=== PATIENT | female | born 1955 | race Caucasian/White ===

== ENCOUNTER 2025-07-06 08:38 | Outpatient (AMB) | payer MEDICARE, SELFPAY ==
--- NOTE | 2025-07-06 08:51 | A.OFFPC_ITS ---
Vital Signs 07/06/25 09:11 Height 5 ft 2 in Weight 172 lb BMI 31.5 BP 112/56 L Blood Pressure Location Rt brachial Position Sitting Respiration 16 Pulse 66 Pulse Source Pulse Oximeter Temp 97.8 F Temp Source Oral Pulse Oximetry (%) 97 Oxygen Delivery Method Room Air Intake Visit Reasons: leg pain Intake Note: patient here for new patient visit c/o leg pain Emergency Room Clerk Required: No Is last menstrual period known: No Post menopausal: No Patient : No Allergies No Known Allergies Allergy (Verified 07/06/25 09:02) Medication List - Last Reviewed 07/06/25 by ARLENE Dhillon bupropion HCl XL 150 mg PO DAILY Ca-D3-mag za-dpyr-mgu-brandon-bor 600 mg calcium- 20 mcg-50 mg (Calcium 600-D3 Plus (mag-zinc)) tabs PO cholecalciferol (vitamin D3) 50 mcg PO DAILY escitalopram oxalate 10 mg PO DAILY multivitamin (Daily Multi-Vitamin tablet) 1 tab PO DAILY omega 9-enu-vyn-fish oil 1,000 (120-180) mg (Fish Oil) 1 cap PO DAILY triamcinolone acetonide 0.025% topical DAILY Tobacco use date assessed: 07/06/25 Fall risk assessment: 1 Fall in past year Last assessed Fall Risk: 07/06/25 Dental Screening Dental Screen Date: 07/06/25 Did you have a dental visit in the last 12 months?: Yes Did you have a dental problem in the last 6 months where you did not have access to dental care?: No Was dental information given to patient?: Patient has dentist HPI HPI Comments History of Present Illness Details 70 y/o F with HLD, MDD, MIGUEL A, Osteoporosi s, rosacea, Vit D def, migraine headaches, FHx early CAD, breast ca, chronic low back pain, urinary incont , hx of perforated septum SurgHx: Cataracts bilat 2022, FHx: Mom leukemia, Dad CAD CHF, Sister DM lupus CAD, Brother HTN, MGM breast Ca, PGM stroke DM, Sister Afib, DM SocHx: 3 children, Grandchildren Health Maintenance: See scanned preventative medicine assessment with personalized health plan and screening schedule. Colon: 2014 tubular adenoma repeat 5 years Mammo 02/2024 WNL 04/2025 * DEXA 2022 osteopenia, stopped fosomax 2024 after taking x 5 years. New DEXA ordered. PAP 2017 Vaccines: Flu 07/05/25, Tdap 2019 otherwise UTD AAA screen EKG: [place] of Care: [facility] GI Dr Emmanuel, referred today for repeat which is due Psych prescriber no counselor Optho glasses Derm History of Present Illness The patient is a 70-year-old female presenting to [facility] with concerns related to multiple medical issues. NEw patient, previous PCP [facility] records reviewed Anxiety and Depression: - History of anxiety and depression. - Controlled with bupropion and escitalo pram. Hyperlipidemia: - Managed with fish oil. Osteoporosis and Vitamin D deficiency: - Previous Fosamax use with improved bon e density. - Vitamin D and calcium supplementation due to deficiency. Osteoporosis was tx w/ fosamax. Was due for repeat DEXA 06/2025 I have ordered repeat today as it is due Obesity: - BMI is 31.5. Right knee meniscus tear with arthritis: - Right knee meniscus tear with arthriti s. - Reports ongoing discomfort affecting m obility. Right knee 1.5 years ago, gave out, tore meniscus, told of OA and nonsurgical. Now has L knee pain @ times. Chronic Low back pain s/p PT Chronic R hip pain assoc w/ right leg swelling has not been to PT in a while Trying to exercise at home Does not want joint replacements Takes NSAID sparingly does not like to take meds Tried topicals w/o relief Plan: [place] [facility] [place] [facility] Tubular adenoma: Due for repeat colon, Dr Emmanuel; Advised to call & schedule. Review of Systems - General: Reports obesity. - Musculoskeletal: Reports right knee di scomfort and history of meniscus tear; discomfort in the right hip. - Psychological: Reports history of anxi ety and depression, currently stable. 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 Physical Exam General: Well developed, well nourished, in no acute distress. Appears stated age. Head: Normocephalic, atraumatic. Eyes: Pupils are equal, round and reactive to light and accommodation. Co njunctivae are clear. Vision grossly normal. Lungs: Clear to auscultation bilaterally. No rales, rhonchi or wheeze noted. Good air flow in all benson. Heart: Regular rate and rhythm. No murmurs, click, rubs or gallops are noted. Musculoskeletal: Joints are nontender, without redness or effusions. Pulses: Peripheral pulses are equal and palpable bilaterally. Extremities: No clubbing, cyanosis noted. Trace edema BLE Psych: Mood and affect appropriate. Discussion Notes During the visit, I discussed the management of the patient's multiple conditions, including anxiety, depression, hyperlipidemia, osteoporosis, and knee discomfort. We reviewed the patient's current medication regimen, which includes bupropion, escitalopram, fish oil, calcium, and vitamin D supplements. For the right knee discomfort linked with arthritis, we explored options such as referral to pain management for further evaluation and potentially imaging studies. We discussed the need for future monitoring of bone density given the history of osteoporosis and discontinued Fosamax use. I advised the patient on obtaining up-to-date screening tests, including mammogram and colonoscopy, to ensure continuity of care and address health maintenance. The possibility of further physical therapy or consulting with a specialist for knee discomfort was also addressed. The patient was informed to expect communication from respective departments regarding scheduled screenings and specialist visits. Patient was given time to ask questions. All questions were answered to their satisfaction. Assessment and Plan 1. Anxiety and Depression - Maintain bupropion, escitalopram; cont inue monitoring. Outside prescriber 2. Hyperlipidemia - Continued management with fish oil; li pid monitoring pending. 3. Osteoporosis and Vitamin D deficiency - Bone density scan ordered. - Maintain supplements. 4. Obesity - Lifestyle changes advised. 5. Right knee meniscus tear with arthrit is/Low back pain/RLE radicular Sx/Bilat knee pain - Pain management referral 6. Tubular adenoma - Referral for colonoscopy to Dr. Kessler . 7. Osteoporosis DEXA ordered Patient Instructions - Follow a healthy diet and exercise rou carlos. - Continue taking prescribed medications . - [facility] - Call Dr. Kessler's office to arrange a colonoscopy. - Expect contact for referral paxton galloway. - RTO Oct w/ labs for AWV sooner PRN Consent Patient was informed and verbally consented to the use of an ambient scribe for clinic note documentation during this visit. Total time spent caring for the patient today was 45 minutes. This includes time spent before the visit reviewing the chart, time spent during the visit, and time spent after the visit on documentation, reviewing laboratory results, diagnostic imaging, medications, performing a medically necessary evaluation, counseling on diagnoses, care coordination, ordering appropriate tests, ordering appropriate medications, review of tests performed by other providers, reporting test results with the patient, communication with other healthcare providers. [facility] Medical History (Updated 07/06/25 @ 09:57 by [facility]) Anxiety Arthritis Depression Osteoporosis Sinusitis Family History (Updated 07/06/25 @ 09:20 by ARLENE Dhillon) Paternal Grandfather Alcohol abuse Son Alcohol abuse Brother High blood pressure Sister High cholesterol Diabetes Cardiovascular disease Father Diabetes Cardiovascular disease Paternal Grandmother Diabetes Maternal Grandfather Cardiovascular disease Mother Leukemia Maternal Grandmother Breast cancer Social History (Updated 07/06/25 @ 09:11 by ARLENE Dhillon) Housing: House Patient Tobacco Use Status: Never used Tobacco e-Cigarette/Vaping Use: Never Used Second Hand Smoke Exposure: No Use of substances other than those prescribed or required for medical reasons: No Patient : No service: No Current occupational status: retired Current occupational exposures/hazards: No Cognitive needs: No Hearing needs: No Vision needs: Yes Questionnaire PHQ-9 Over the last 2 weeks, how often have you been bothered by any of the following problems? 1. Little interest or pleasure in doing things: not at all 2. Feeling down, depressed, or hopeless: not at all 3. Trouble falling or staying asleep, or sleeping too much: not at all 4. Feeling tired or having little energy: not at all 5. Poor appetite or overeating: not at all 6. Feeling bad about yourself - or that you are a failure or have let yourself or your family down: not at all 7. Trouble concentrating on things, such as reading the newspaper or watching television: several days 8. Moving or speaking so slowly that other people could have noticed. Or the opposite - being so fidgety or restless that you have been moving around a lot more than usual: not at all 9. Thoughts that you would be better off or of hurting yourself in some way: not at all Total score: 1 Depression Screening Interpretation: Negative Depression Screening Done: Yes 26390 - PHQ-9 Billing: Yes Source: Developed by Drs. Maneul Aguilar, Ghazala Dexter Barth and colleagues, with an educational jennyfer from [employer]). Thrive Questionnaire Date Thrive assessed: 07/06/25 I am a: Patient What is your living situation today?: I have a steady place to live Within the past 12 months, did the food you bought not last and you didn't have the money to get more?: Never true Within the past 12 months, did you worry whether your food would run out before you got money to buy more?: Never true Do you have trouble paying for medicines?: No Do you have trouble getting transportation to medical appointments?: No Do you have trouble paying your heating and electricity bill?: No Do you have trouble taking care of your child, family member or friend?: No Do you have trouble with day-to-day activities such as bathing, preparing meals, shopping, managing finances, etc.?: No Are you currently unemployed and looking for a job?: No Are you interested in more education?: No Please select the resources that you would like help with: None Currently or been in a relationship where the following occur: No concerns reported THRIVE Score: 0 AUDIT C Alcohol Use Questionnaire (AUDIT-C) 1. How often do you have a drink containing alcohol?: Never 3. How often do you have six or more drinks on one occasion?: Never Total Score: 0 Score Reviewed/Action Taken: Yes MIGUEL A-7 AMB Questionnaire MIGUEL A-7 Date MIGUEL A - 7 assessed: 07/06/25 Feeling nervous, anxious, or on edge: 0 = Not at all Not being able to stop or control worryin = Not at all Worrying too much about different things: 0 = Not at all Trouble relaxin = Not at all Being so restless that it is hard to sit still: 0 = Not at all Becoming easily annoyed or irritable: 0 = Not at all Feeling afraid as if something awful might happen: 0 = Not at all Total MIGUEL A-7 score (0-4 normal; 5-9 mild; 10-14 moderate; 15-21 severe): 0 Source: Developed by Drs. Manuel Aguilar, Dexter Marquez and colleagues, with an educational jennyfer from [employer] ([employer]). MIGUEL A-7 Assessment Billing MIGUEL A-7 Assessment Tool: MIGUEL A-7 Assessment 89397 Physical exam (Primary Care) Vital Signs: Last Vital Signs Temp 97.8 F 07/06/25 09:11 Pulse 66 07/06/25 09:11 Resp 16 07/06/25 09:11 BP 112/56 L 07/06/25 09:11 Pulse Ox 97 07/06/25 09:11 Oxygen Delivery Method Room Air 07/06/25 09:11 BMI result Body Mass Index 31.5 BMI Assessment/Plan discussion: High BMI High, discussed plan: lifestyle Tobacco/Smoking Status: Tobacco use Status Tobacco use date assessed 07/06/25 07/06/25 09:11 Patient Tobacco Use Status Never used Tobacco 07/06/25 09:11 e-Cigarette/Vaping Use Never Used 07/06/25 09:11 PHQ-9: PHQ-9 Score PHQ-9: Total score 1 07/06/25 09:11 Depression Screening Interpretation: Negative Thrive Assessment: Date of Thrive Assessment Date Thrive assessed 07/06/25 07/06/25 08:52 Currently or been in a relationship where the following occur: No concerns reported Coding Level of Care Code New Pt Level 4 (95341) Complex EM visit Add On G2211 Diagnoses Encounter to establish care Z76.89 Obesity (BMI 30-39.9) E66.9 Mild episode of recurrent major depressive disorder F33.0 Major depression episode severity: mild MIGUEL A (generalized anxiety disorder) F41.1 Rosacea L71.9 Vitamin D deficiency E55.9 Chronic bilateral low back pain with right-sided sciatica M54.41; G89.29 Back pain laterality: bilateral Sciatica presence: with sciatica Sciatica laterality: sciatica of right side History of colonoscopy Z98.890 History of mammogram Z92.89 History of Papanicolaou smear of cervix Z92.89 Radicular syndrome of right leg M54.10 Right hip pain M25.551 Hx of tear of meniscus of knee joint Z87.828 Bilateral knee pain M25.561; M25.562 Osteoporosis M81.0 Menopause Z78.0 Tubular adenoma D36.9 Additional Codes MIGUEL A-7 Assessment Billing - MIGUEL A-7 Assessment Tool: MIGUEL A-7 Assessment 50731 ([id number]) PHQ-9 - 70460 - PHQ-9 Billing: Yes ([id number]) Assessment & Plan Assessment & Plan (1) Encounter to establish care: Code(s): Z76.89 - Persons encountering health services in other specified circumstances (2) Obesity (BMI 30-39.9): Code(s): E66.9 - Obesity, unspecified Category: Medical (3) MDD (major depressive disorder), recurrent episode: Code(s): F33.9 - Major depressive disorder, recurrent, unspecified Category: Medical Qualifiers: Major depression episode severity: mild Qualified Code(s): F33.0 - Major depressive disorder, recurrent, mild (4) MIGUEL A (generalized anxiety disorder): Code(s): F41.1 - Generalized anxiety disorder Category: Medical (5) Rosacea: Code(s): L71.9 - Rosacea, unspecified Category: Medical (6) Vitamin D deficiency: Code(s): E55.9 - Vitamin D deficiency, unspecified Category: Medical (7) Chronic low back pain: Code(s): M54.50 - Low back pain, unspecified; G89.29 - Other chronic pain Category: Medical Qualifiers: Back pain laterality: bilateral Sciatica presence: with sciatica Sciatica laterality: sciatica of right side Qualified Code(s): M54.41 - Lumbago with sciatica, right side; G89.29 - Other chronic pain (8) History of colonoscopy: Onset Date: ~2019 Code(s): Z98.890 - Other specified postprocedural states Category: Surgical (9) History of mammogram: Onset Date: ~04/2025 Code(s): Z92.89 - Personal history of other medical treatment Category: Medical (10) History of Papanicolaou smear of cervix: Onset Date: ~2016 Code(s): Z92.89 - Personal history of other medical treatment Category: Medical (11) Radicular syndrome of right leg: Code(s): M54.10 - Radiculopathy, site unspecified Category: Medical (12) Right hip pain: Code(s): M25.551 - Pain in right hip Category: Medical (13) Hx of tear of meniscus of knee joint: Code(s): Z87.828 - Personal history of other (healed) physical injury and trauma Category: Medical (14) Bilateral knee pain: Code(s): M25.561 - Pain in right knee; M25.562 - Pain in left knee Category: Medical (15) Osteoporosis: Code(s): M81.0 - Age-related osteoporosis without current pathological fracture Category: Medical (16) Menopause: Code(s): Z78.0 - Asymptomatic menopausal state Category: Medical (17) Tubular adenoma: Onset Date: ~2019 Code(s): D36.9 - Benign neoplasm, unspecified site Category: Medical Plan . Orders: Orders Comprehensive Met. Panel Today E55.9 - Vitamin D deficiency, unspecified, M81.0 - Age-related osteoporosis without current pathological fracture Hemoglobin A1c Today E55.9 - Vitamin D deficiency, unspecified, M81.0 - Age- related osteoporosis without current pathological fracture Vitamin B12 and Folate Today E55.9 - Vitamin D deficiency, unspecified, M81.0 - Age-related osteoporosis without current pathological fracture XR DEXA axial skeleton Today E55.9 - Vitamin D deficiency, unspecified, E66.9 - Obesity, unspecified, M81.0 - Age-related osteoporosis without current pathological fracture, Z13.820 - Encounter for screening for osteoporosis, Z78.0 - Asymptomatic menopausal state MM tomosynthesis screening BI Today Z12.31 - Encounter for screening mammogram for malignant neoplasm of breast Complete Blood Count no Diff Today E55.9 - Vitamin D deficiency, unspecified, M 81.0 - Age-related osteoporosis without current pathological fracture Lipid Panel Today E55.9 - Vitamin D deficiency, unspecified, M81.0 - Age- related osteoporosis without current pathological fracture Microalbumin, Random (w Creat) Today E55.9 - Vitamin D deficiency, unspecified, M81.0 - Age-related osteoporosis without current pathological fracture TSH reflex Free T4 Today E55.9 - Vitamin D deficiency, unspecified, M81.0 - Age-related osteoporosis without current pathological fracture Vitamin D 25-OH Total Today E55.9 - Vitamin D deficiency, unspecified, M81.0 - Age-related osteoporosis without current pathological fracture Referrals Pain Management Referral G89.29 - Other chronic pain, M25.551 - Pain in right hip, M25.561 - Pain in right knee, M25.562 - Pain in left knee, M54.10 - Radiculopathy, site unspecified, M54.50 - Low back pain, unspecified, Z87.828 - Personal history of other (healed) physical injury and trauma Gastroenterology Referral Z12.11 - Encounter for screening for malignant neoplasm of colon Patient Instructions: Walk-In Care (Urgent Care): We Make it Easy Walk-in for urgent medical issues such as: ? Seasonal Allergies ? Insect Bites ? Cough ? Diarrhea ? Acute Asthma Attacks ? Back, Knee or Joint Pain ? Ear Infection ? Fever without a Rash ? Headaches ? Nausea ? [place] Eye, Rash or Skin Irritation ? Sore Throat ? Sports Physicals ? Vomiting Most insurances are accepted. Patients do not need to be part of the [facility] to seek care at the walk-in clinic. Locations [address] [place], [place] Open Thursday through Thursday 8am-5pm *Hours may vary due to staffing availability. To confirm Walk-In Care hours please call. [address] [place] [address] , [place] [address] ? [phone] [facility] Walk-In Care in [place] provides services to ages 18 and over. Open Thursday-Thursday: 7 a.m. to 5 p.m. and Thursday: 9 a.m. to 3 p.m.* *Hours may vary due to staffing availability. To confirm Walk-In Care hours in [place], please call [phone]. [address] [place] [address] ? [phone] [facility] Walk-In Care in [place] provides services to ages 12 and over. Open Thursday-Thursday: 8 a.m. to 5 p.m. Hours may vary due to staffing availability. To confirm Walk-In Care hours in [place], please call [phone]. LABORATORY SERVICES: [facility] ? Primary Location [address] [place] [address] Thursday through Thursday 6:00 AM ? 5:00 PM Thursday 7:00 AM ? 11:00 AM* [phone] The [facility] is centrally located near the front entrance of the [facility] for easy outpatient access. Convenient parking is provided for outpatients. *Hours may vary due to staffing availability. To confirm Laboratory hours for any location, please call [phone]. Offsite Location For your convenience, we offer offsite laboratory draw stations at the following locations: [address] [place], [place] [address] [address], [address], [place] Thursday through Thursday 7:30 AM ? 1:00 PM* [phone] *Hours may vary due to staffing availability. To confirm Laboratory hours for any location, please call [phone]. [place] ? [facility] [place] Thursday through Thursday 6:00 AM ? 3:30 PM* Thursday 6:30 AM ? 3 PM* [phone] *Hours may vary due to staffing availability. To confirm Laboratory hours for any location, please call [phone]. [address] [facility] Thursday through Thursday 7:30 AM ? 4:00 PM* [phone] *Hours may vary due to staffing availability. To confirm Laboratory hours for any location, please call [phone] [place] [address] Thursday through 9:00 AM ? 4:00 PM* *Hours may vary due to staffing availability. To confirm Laboratory hours for any location, please call [phone]. Appointments are not necessary. Walk-ins are welcome. Like all the departments throughout the [facility], our Lab undergoes frequent reviews to ensure the quality and accuracy of test results, and our staff takes special pride in its status as a nationally accredited facility. Patient Portal: [facility] ONE PATIENT. ONE RECORD. BETTER CARE. [facility] has a fully integrated, cutting- edge mobile electronic health information system that has revolutionized the way we care for our patients and manage our organization. This system improves communication and coordination enabling us to provide safe, higher-quality care, and an overall positive experience for staff and patients. Our first priority, as always, is to deliver the highest quality care possible. The system is running in the background supporting that priority. This portal is for all [facility] services and practices. If you are experiencing any technical difficulties with enrolling or logging into the Patient Portal please complete the [facility] Patient Portal Technical Support Form. [facility] now offers a new secure on-line interactive tool for patients to review their health information ? ?Patient Portal. This interactive web portal will enable patients and their families to take an active role in their care by providing easy, secure access to their health information via the internet. The Patient Portal provides patients with instant access to their health information, including laboratory results, medications, allergies, demographic information, visit history, and more. In addition to managing their own care, parents and health care proxies with authorized consent will appreciate the ability to access the records of those individuals for whom they provide care. Please note: if you wish to gain access (Proxy) to another patient?s portal, you will be required to come to the Medical Records Department in person at [facility]. Both the patient giving proxy access and the proxy will need to provide photo identification and complete the appropriate authorization. The Patient Portal also allows track their appointments online. The [facility] Patient Portal also saves patients time by allowing them to submit updates to their demographic and contact information prior to their visits. Portal email notifications will also alert patients to any new activity on their portal, such as test results and new appointments. In order to initially enroll in the [facility] Patient Portal, you will need to enter some required information including the following: * your [facility] Medical Record number * your personal home email address * name * date of Please note: In order to enroll in the [facility] Patient Portal, we need to have your email address on file in your electronic medical record. ?The email address needs to be specific for one person (yourself) in order for your Portal enrollment to be successful. ?You can update your email address in person with our Registration staff when you are registering for a hospital visit. ?Otherwise, you will need to come to the Health Information Management (Medical Records) Department at [facility]. ?We are open from Thursday ? Thursday from 7:30 a.m. ? 4:30 p.m. ?You will be required to present a photo id. Once you have successfully enrolled in the Patient Portal, you will receive a one-time user id and password for the Portal, sent to your email address. ?This will allow you to log into the Patient Portal within 99 hrs and reset your own logon id and password, and define personal security questions. ?Once your permanent login and password have been set, you can log into the [facility] [place] Portal at any time via the blue button above or from the Portal Logon button on any page of the [facility] website. [facility] and [facility] encourage all of our patients to enroll in Patient Portal as it presents a valuable opportunity for patients and their families to actively participate in their care and stay healthy Welcome to [facility]. ?We look forward to working with you.
--- OUTSIDE RECORDS SUMMARY | 2025-07-06 09:10 | XMS_ITS | Clinical Summary ---
Author Organization [facility] Address [address] [place] [phone] Phone Care Team Providers Care Model Maker Plastic Name Role Phone Kayden Connor MD Primary Care Provider [phone] Allergies No known active allergies Medications ascorbic acid, vitamin C, (VITAMIN C) 100 MG tablet Take 100 mg by mouth daily. Active buPROPion (WELLBUTRIN XL) 150 MG ER 24 hr tablet Take 150 mg by mouth every morning. 05/23/2024 Active buPROPion (WELLBUTRIN XL) 300 MG ER 24 hr tablet Take 300 mg by mouth every morning. 05/23/2024 Active cholecalciferol (VITAMIN D3) 2,000 unit capsule Take by mouth. Active escitalopram oxalate (LEXAPRO) 20 MG tablet Take 1 tablet by mouth daily. 05/23/2024 Active Immunizations Immunization Administration Dates Next Due COVID-19 (Pre-07/06) Pfizer Vaccine, mRNA, PF Social History Tobacco Use Types Packs/Day Years Used Date Smoking Tobacco: Never Smokeless Tobacco: Never Tobacco Cessation:Counseling Given: Not Answered Alcohol Use Standard Drinks/Week Comments Not Currently 0 (1 standard drink = 0.6 oz pur e alcohol) Education Answer Date Recorded Are you interested in more education? Not on adrian e 11/22/2024 Are you concerned about learning? Not on file 11/22/2024 No 11/22/2024 No 11/22/2024 Digital Access Answer Date Recorded No 11/22/2024 No 11/22/2024 Reliable internet access at home? Not on file 11/22/2024 Device with a working camera? Not on file Comments No Sex and Gender Information Value Date Recorded Sex Assigned at Not on file Legal Sex Female 3:43 PM EDT Gender Identity Not on file Sexual Orientation Not on file Last Filed Vital Signs Vital Sign Reading Time Taken Comments Blood Pressure 126/78 11/23/2024 2:30 PM EDT Pulse - - Temperature - - Respiratory Rate - - Oxygen Saturation - - Inhaled Oxygen Concentration - - Weight 74.8 kg (165 lb) 11/23/2024 2:30 PM EDT Height 158.8 cm (5' 2.5 ) 11/23/2024 2:30 PM ED T Body Mass Index 29.7 11/23/2024 2:30 PM EDT Plan of Treatment Health Maintenance Due Date Last Done Comments Adult Td,Tdap Booster 1953 LIPID PANEL 1953 DEPRESSION SCREENING 1965 HEPATITIS C SCREENING 1971 MAMMOGRAM 1993 COLOGUARD 1998 COLONOSCOPY 1998 COLORECTAL CANCER SCREENING 1998 FIT TEST 1998 FOBT 1998 SIGMOIDOSCOPY 1998 VIRTUAL COLONOSCOPY 1998 OSTEOPOROSIS SCREENING INITIAL (ONE-TIME) 2018 INFLUENZA VACCINE (#1) 2025 , 07/10/2023, 07/24/2022, Additional history exists COVID-19 VACCINE (2024- season) 2025 06/16/2024, 07/10/2023, 07/03/2023, Additional history exists PNEUMOCOCCAL VACCINES (50+ years) Completed 06/23/2019, 06/04/2018 ZOSTER VACCINES Completed 03/26/2023, 10/29/2022 RSV VACCINE Completed 07/27/2024 SMOKING STATUS SCREENING (Once After 26 Yrs) Completed 11/23/2024 HEPATITIS A VACCINES Aged Out No long er eligible based on patient's age to complete this topic HIB VACCINES Aged Out No longer eligi ble based on patient's age to complete this topic MENINGOCOCCAL VACCINES (ACWY) Aged Out No longer eligible based on patient's age to complete this topic MENINGOCOCCAL VACCINES (B) Aged Out N o longer eligible based on patient's age to complete this topic Medical Devices Not on file Insurance MEDICARE [place]AC[place] [id number] [place]IC[place] [id number] MEDIC[place] [id number] [place] [address] [place] [place] [address] MEDICARE RE[place]AC[place] [id number] [facility] MEDICARE REPLACEMENT [place] [id number] Care Teams Model Maker Plastic Relationship Specialty Start Date End Date Kayden Connor MD [address] [place] [id number] PCP - General Internal Medicine 11/21/24 Additional Source Comments The information contained in this document represents components of the legal health record. It is not the complete legal health record.[facility]
--- OUTSIDE RECORDS SUMMARY | 2025-07-06 09:10 | XMS_ITS | Clinical Summary ---
Author Organization [address] Address [address] [place] [address] Phone Care Team Providers Care Printed Products Assembler Name Role Phone Fernandez Vazquez MD Primary Care Provider Encounters Date Type Department Care Team Description 05/17/2025 8:53 AM EDT - 05/17/2025 11:59 PM EDT Hospital [facility]counter [facility] [address] [place] [phone] Encounter for screening mammogram for breast cancer Discharge Disposition: Home or Self Care from Last 3 Months Surgical History Surgery Date Site/Laterality Comments OTHER SURGICAL HISTORY PROCEDURE: DENIES PREVIOUS SURGERY Medical History Medical History Date Comments History of migraine headaches DX :History of migraine headaches History of adenomatous polyp of colon DX:History of adenomatous polyp of colon; COMMENT: 2014 colonoscopy Perforated nasal septum DX:Perfo rated nasal septum Cataracts, bilateral DX:Cataract s, bilateral; COMMENT: Dr. Mor[facility] on [address] Family History Medical History Relation Name Comments Hypertension Brother Coronary artery disease Father Heart failure Father No Known Problems Maternal Grandfather Breast cancer Maternal Grandmother Leukemia Mother No Known Problems Paternal Grandfather Diabetes Paternal Grandmother Stroke Paternal Grandmother Coronary artery disease Sister 1 Diabetes Sister 1 Other: lupus Sister 1 Diabetes Sister 2 Other: atrial fibrillation Sister 2 No Known Problems Sister 3 1/2 Colon cancer Neg Hx Relation Name Status Comments Brother Alive Father (Age 83) Maternal Grandfather Maternal Grandmother (Age 68) Mother (Age 42) Paternal Grandfather Paternal Grandmother Sister 1 Sister 2 Alive Sister 3 Alive Social History Tobacco Use Types Packs/Day Years Used Date Smoking Tobacco: Never Smokeless Tobacco: Never Alcohol Use Standard Drinks/Week Comments Yes 0 (1 standard drink = 0.6 oz pur e alcohol) Comments No Sex and Gender Information Value Date Recorded Sex Assigned at Female 09/24/2024 6:36 PM EST Legal Sex Female 9:08 PM EST Gender Identity Female 09/24/2024 6:36 PM EST Sexual Orientation Straight 09/24/2024 6: 36 PM EST Obstetrics History Para Term AB IAB SAB Ectopic Multiple Livin g Live Births 3 Last Filed Vital Signs Vital Sign Reading Time Taken Comments Blood Pressure 100/60 10/12/2023 8:34 AM EST Pulse 64 10/12/2023 8:34 AM EST Temperature - - Respiratory Rate - - Oxygen Saturation - - Inhaled Oxygen Concentration - - Weight 79.4 kg (175 lb) 05/17/2025 9:10 AM EDT Height 157.5 cm (5' 2 ) 05/17/2025 9:10 AM EDT Body Mass Index 32.01 05/17/2025 9:10 AM EDT Plan of Treatment Health Maintenance Due Date Last Done Comments Colorectal Cancer Screening: Colonoscopy 1955 DTaP,Tdap,and Td Vaccines (1 - Tdap) 1972 Falls Risk Assessment 08/23/2022 Hepatitis C Screening 08/23/2022 Medicare Annual Wellness Visit 08/23/2022 Social Influencers of Health Screening 08/23/2022 Depression Screening 09/14/2024 COVID-19 Vaccine (7 - Pfizer risk 2023- season) 2025 06/16/2024, 07/10/2023, 07/03/2023, Additional history exists Influenza Vaccine (#1) 2025 , 07/10/2023, 07/24/2022, Additional history exists Breast Cancer Screening 05/17/2027 05/17/20, 02/19/2024, 02/19/2024, Additional history exists Cholesterol Screening (Lipid Panel) 11/30/2029 11/30/2024 Osteoporosis Screening (Bone Density Screening) 06/26/2033 06/26/2023, 10/24/2020 Pneumococcal Vaccine: 50+ Years Completed 06/23/2019, 06/04/2018 Zoster Vaccines Completed 03/26/2023, 10/29/2022 RSV Immunization Adult Patients Completed 07/27/2024 HIB Vaccines Aged Out No longer eligi ble based on patient's age to complete this topic HPV Vaccines Aged Out No longer eligi ble based on patient's age to complete this topic Hepatitis A Vaccines Aged Out No long er eligible based on patient's age to complete this topic Hepatitis B Vaccines Aged Out No long er eligible based on patient's age to complete this topic IPV Vaccines Aged Out No longer eligi ble based on patient's age to complete this topic MMR Vaccines Aged Out No longer eligi ble based on patient's age to complete this topic Meningococcal ACWY Vaccine Aged Out N o longer eligible based on patient's age to complete this topic Meningococcal B Vaccine Aged Out No l onger eligible based on patient's age to complete this topic RSV Immunization Patients Under 20 months Aged Out No longer eligible based on patient's age to complete this topic Varicella Vaccines Aged Out No longer eligible based on patient's age to complete this topic Procedures Procedure Name Priority Date/Time Associated Diagnosis Comments MG MAMMO DIGITAL SCREENING W PAYAM BILAT Routine 05/17/2025 9:16 AM EDT Encounter for screening mammogram for breast cancer LIPID PANEL WITH REFLEX TO DIRECT LDL Routine 11/30/2024 11:01 AM EDT Routine general medical examination at a health care facility Major depressive disorder, single episode, unspecified Screening for diabetes mellitus Chronic fatigue Hyperlipidemia, unspecified hyperlipidemia type DXA BONE DENSITY STUDY 1+ SITS AXIAL SKEL Routine 06/26/2023 10:22 AM EDT Age-related osteoporosis without current pathological fracture from Last 3 Months or Most Recently Relevant to Health Maintenance Results * MG Mammo Digital Screening w Payam bilat (05/17/2025 9:16 AM EDT) Anatomical Region Laterality Modality Breast Bilateral Mammography 05/17/2025 5:23 PM EDT Impressions 05/17/2025 5:31 PM EDT No mammographic evidence of malignancy. No suspicious interval change. A negative mammogram in the presence of a clinically suspicious palpable abnormality does not preclude the possibility of malignancy or alter the indications for biopsy. ASSESSMENT: BI-RADS 1: NEGATIVE RECOMMENDATION(S): 1: Routine screening mammogram BILATERAL in 1 year. [facility] location[facility] [address], [id number] -------- FINAL REPORT -------- Dictated By: Jamey Sears Dictated Date: 05/17/2025 17:23 ET Assigned Physician: Jamey Sears Reviewed and Electronically Signed By: Jamey Sears Signed Date: 05/17/2025 17:31 ET Workstation ID: [id number] Transcribed By: Self Edit Transcribed Date: 05/17/2025 17:23 ET Narrative 05/17/2025 5:31 PM EDT EXAM: SCREENING MAMMOGRAPHY, BILATERAL HISTORY: SCREENING. Maternal grandmother with history of breast cancer. COMPARISON: 02/19/24, 02/12/23, 11/21/21, 11/15/20 TECHNIQUE: Synthesized CC and MLO projections of each breast. Tomosynthesis of each breast in the CC and MLO projections. ADDITIONAL IMAGING: Craniocaudal view of the left breast exaggerated toward the axilla using Tomosynthesis. Computer-aided detection was employed with the [employer] AI 3-D. TISSUE DENSITY: There are scattered areas of fibroglandular density. (BI-RADS category B) FINDINGS: RIGHT BREAST: No suspicious mass. No suspicious calcification. No distortion. No additional suspicious right breast findings LEFT BREAST: No suspicious mass. No suspicious calcification. No distortion. No additional suspicious left breast findings Procedure Note Jamey Sears MD - 05/17/2025 EXAM: SCREENING MAMMOGRAPHY, BILATERAL HISTORY: SCREENING. Maternal grandmother with history of breastcancer. COMPARISON: 02/19/24, 02/12/23, 11/21/21, 11/15/20 TECHNIQUE: Synthesized CC and MLO projections of each breast.Tomosynthesis of each breast in the CC and MLO projections. ADDITIONAL IMAGING: Craniocaudal view of the left breast exaggeratedtoward the axilla using Tomosynthesis. Computer-aided detection was employed with the [employer] AI 3-D. TISSUE DENSITY: There are scattered areas of fibroglandular density.(BI-RADS category B) FINDINGS: RIGHT BREAST: No suspicious mass. No suspicious calcification. No distortion. Noadditional suspicious right breast findings LEFT BREAST: No suspicious mass. No suspicious calcification. No distortion. Noadditional suspicious left breast findings IMPRESSION: No mammographic evidence of malignancy. No suspicious interval change. A negative mammogram in the presence of a clinically suspicious palpableabnormality does not preclude the possibility of malignancy or alter theindications for biopsy. ASSESSMENT: BI-RADS 1: NEGATIVE RECOMMENDATION(S): 1: Routine screening mammogram BILATERAL in 1 year. [facility] location[facility] [address], [address] -------- FINAL REPORT -------- Dictated By: Jamey Sears Dictated Date: 05/17/2025 17:23 ET Assigned Physician: Jamey Sears Reviewed and Electronically Signed By: Jamey Sears Signed Date: 05/17/2025 17:31 ET Workstation ID: [id number] Transcribed By: Self Edit Transcribed Date: 05/17/2025 17:23 ET us Self Referral Sppl IMG BI PROCEDURES Final Resul t * Lipid panel with reflex to direct LDL (11/30/2024 11:01 AM EDT) Cholesterol 164 0 - 200 mg/dL LAB CHEMISTRY METHOD 11/30/2024 2:23 PM EDT [facility] Triglycerides 54 0 - 150 mg/dL LAB CHEMISTRY METHOD 11/30/2024 2:23 PM EDT [facility] HDL 53 >=40 mg/dL LAB CHEMISTRY METHOD 11/30/2024 2:23 PM EDT [facility] LDL Calculated 100 0 - 100 mg/dL LAB CHEMISTRY METHOD 11/30/2024 2:23 PM EDT [facility] VLDL Cholesterol Jose 10.8 mg/dL LAB CHEMISTRY METHOD 11/30/2024 2:23 PM EDT [facility] Non HDL Chol. (LDL+VLDL) 111 <145 mg/dL LAB CHEMISTRY METHOD 11/30/2024 2:23 PM EDT [facility] Chol/HDL Ratio 3.1 0.0 - 4.4 LAB CHEMISTRY METHOD 11/30/2024 2:23 PM EDT [facility] Blood Venous blood specimen / Unknown Venipuncture / Unknown 11/30/2024 11:01 AM EDT 11/30/2024 11:34 AM EDT us Trevor RAMIRES LAB BLOOD ORDERABLES Final Res ult [facility] [address] [place] [address], [place] [phone] * DXA BONE DENSITY STUDY 1+ SITS AXIAL SKEL (06/26/2023 10:22 AM EDT) Anatomical Region Laterality Modality Bone Densitometr y 04/09/2023 8:47 AM EDT Narrative 06/27/2023 11:48 AM EDT STUDY: DUAL ENERGY X-RAY ABSORPTIOMETRY / DXA REASON FOR EXAM: Female, 68 years old. osteoporosis TECHNIQUE: Bone Mineral Density (BMD) measurements of the lumbar spine and left hip were obtained using [employer] Discovery W (S/N [id number]). COMPARISON: October 24, 2020 FINDINGS: L1-L4 BMD: 0.958 g/cm2 L1-L4 T score: -0.8. This corresponds to Normal bone density. This represents a 4.7* % increase in bone density compared with prior exam from October 24, 2020. Left femoral neck BMD: 0.612 g/cm2 Left femoral neck T score: -2.1. This corresponds to osteopenia. Left total hip BMD: 0.928 g/cm2 Left total hip T score: -0.1. This corresponds to Normal bone density. This represents a 7.5* % increase in bone density compared with prior exam from October 24, 2020. * - Indicates a statistically significant change. IMPRESSION: IMPRESSION: Osteopenia Reference Information: The T-score is the number of standard deviations above or below the standard which is normal for young adults at their peak bone mineral density. The World Health Organization (WHO) interprets the T-scores as follows: At or above -1 SD Normal bone density Between -1 and -2.5 SD Osteopenia At or below -2.5 SD Osteoporosis Procedure Note Yolanda Coulter - 10/20/2023 STUDY: DUAL ENERGY X-RAY ABSORPTIOMETRY / DXA REASON FOR EXAM: Female, 68 years old. osteoporosis TECHNIQUE: Bone Mineral Density (BMD) measurements of the lumbar spineand left hip were obtained using [employer] W (S/N [id number]). COMPARISON: October 24, 2020 FINDINGS: L1-L4 BMD: 0.958 g/cm2 L1-L4 T score: -0.8. This corresponds to Normal bone density. This represents a 4.7* % increase in bone density compared with prior examfrom October 24, 2020. Left femoral neck BMD: 0.612 g/cm2 Left femoral neck T score: -2.1. This corresponds to osteopenia. Left total hip BMD: 0.928 g/cm2 Left total hip T score: -0.1. This corresponds to Normal bone density. This represents a 7.5* % increase in bone density compared with prior examfrom October 24, 2020. * - Indicates a statistically significant change. IMPRESSION: IMPRESSION: Osteopenia Reference Information: The T-score is the number of standard deviations above or below thestandard which is normal for young adults at their peak bone mineral density. The World HealthOrganization (WHO) interprets the T-scores as follows: At or above -1 SD Normal bone density Between -1 and -2.5 SD Osteopenia At or below -2.5 SD Osteoporosis Masha RAMIRES IMG DXA PROCEDURES Fi nal Result from Last 3 Months or Most Recently Relevant to Health Maintenance Insurance [employer] MEDICARE Advance Directives Documents on File Type Date Recorded Patient Reading Teacher Expl anation Health Care Decision (hx) 07/19/2014 AD SOLIS DIRECTIVE Health Care Decision (hx) 07/19/2014 AD SOLIS DIRECTIVE Health Care Decision (hx) 07/19/2014 AD SOLIS DIRECTIVE Health Care Decision (hx) 07/19/2014 AD SOLIS DIRECTIVE Health Care Decision (hx) 07/19/2014 AD SOLIS DIRECTIVE Health Care Decision (hx) 07/19/2014 AD SOLIS DIRECTIVE Health Care Decision (hx) 07/19/2014 AD SOLIS DIRECTIVE Health Care Decision (hx) 07/19/2014 AD SOLIS DIRECTIVE Health Care Decision (hx) 07/19/2014 AD SOLIS DIRECTIVE Care Teams Printed Products Assembler Relationship Specialty Start Date End Date Fernandez Vazquez MD [address] [place] [address] Dr Jennifer MA PCP - General Family Medicine 05/17/25
[2025-07-06 09:11] VITALS: BP 112/56; PULSE 66; RESP 16; TEMP 36.6; O2SAT 97; BMI 31.5
== END 2025-07-06 10:17 | disposition home or self-care (01) ==
LOC: HO.HMCFM 08:39
PROVIDERS: PCP Nurse Practitioner Family; Visit Provider Nurse Practitioner Family
DX: M54.41 Lumbago with sciatica, right side (principal); E66.9 Obesity, unspecified; Z68.31 Body mass index [BMI] 31.0-31.9, adult; F33.0 Major depressive disorder, recurrent, mild; F41.1 Generalized anxiety disorder; L71.9 Rosacea, unspecified; E55.9 Vitamin D deficiency, unspecified; G89.29 Other chronic pain; Z98.890 Other specified postprocedural states; Z92.89 Personal history of other medical treatment; M54.10 Radiculopathy, site unspecified

== ENCOUNTER → 2025-07-06 08:38 | Outpatient (BNVA) | payer MEDICARE, SELFPAY | PROVIDERS: PCP Nurse Practitioner Family; Visit Provider Nurse Practitioner Family | DX: M81.0 Age-related osteoporosis without current pathological fracture (principal); E55.9 Vitamin D deficiency, unspecified; E66.9 Obesity, unspecified; M17.11 Unilateral primary osteoarthritis, right knee; F33.0 Major depressive disorder, recurrent, mild; F41.1 Generalized anxiety disorder; L71.9 Rosacea, unspecified; M54.41 Lumbago with sciatica, right side; G89.29 Other chronic pain; M54.10 Radiculopathy, site unspecified; M25.551 Pain in right hip; M25.562 Pain in left knee; E78.5 Hyperlipidemia, unspecified; Z76.89 Persons encountering health services in other specified circumstances; Z87.828 Personal history of other (healed) physical injury and trauma; Z68.31 Body mass index [BMI] 31.0-31.9, adult | CPT/HCPCS: 96127; 99202 ==

== ENCOUNTER 2025-07-31 10:03 | Outpatient (AMB) | payer MEDICARE, SELFPAY ==
--- NOTE | 2025-07-31 10:05 | MHC.OFFVIS ---
Vital Signs 07/31/25 10:07 Height 5 ft 2 in Weight 171 lb BMI 31.3 BP 126/59 L Blood Pressure Location Lt brachial Position Sitting Respiration 16 Pulse 78 Pulse Source Pulse Oximeter Pulse Oximetry (%) 98 Oxygen Delivery Method Room Air Intake Visit Reasons: Low back pain, unspecified Sales Team Recruiter Required: No Allergies No Known Allergies Allergy (Verified 07/31/25 10:08) Medication List - Last Reconciled 07/31/25 by Candice Gates LPN bupropion HCl XL 150 mg PO DAILY Ca-D3-mag la-ltvq-nfy-brandon-bor 600 mg calcium- 20 mcg-50 mg (Calcium 600-D3 Plus (mag-zinc)) tabs PO cholecalciferol (vitamin D3) 50 mcg PO DAILY escitalopram oxalate 10 mg PO DAILY magnesium gluconate 30 mg PO DAILY multivitamin (Daily Multi-Vitamin tablet) 1 tab PO DAILY omega 6-jiw-soc-fish oil 1,000 (120-180) mg (Fish Oil) 1 cap PO DAILY HPI HPI Low back pain, unspecified: Details: History of Present Illness The patient is a 70-year-old female presenting with chronic pain management. The patient reports experiencing lower back pain predominantly on the right side, which radiates to her hip. This pain has been persistent for several years and is exacerbated by standing, walking, and movements, but not present at rest. She has previously undergone physical therapy for her back pain. The patient also reports right knee pain, which began about four years ago when her knee gave out while walking. Two years ago, she was diagnosed with a torn meniscus via MRI, and surgical repair was not recommended. She has received a cortisone injection in the past, which she felt was unnecessary at the time. The patient has been managing her pain with Tylenol, ibuprofen, and muscle relaxers as needed. She also practices yoga and performs strengthening exercises at home, although she finds it challenging due to her back pain. Additionally, the patient has osteopenia, which limits the use of steroid injections due to potential adverse effects on bone health. She has also developed urinary incontinence, which is noted as a separate issue. Pain Description - Pain in lower back, right knee, and both hips, rated 8/10 in severity in the right knee and lower back - Excruciating pain in both hips with standing, walking, and movements - No pain at rest - Right knee pain began four years ago, diagnosed with a torn meniscus two years ago - Pain managed with Tylenol, ibuprofen, and muscle relaxers as needed - Pain exacerbated by standing, walking, and movements Physical Exam - Musculoskeletal: Extension reproduces pain on the right side, positive facet loading Results - X-ray of the right knee showed mild osteoarthritis - MRI of the right knee notable for a meniscus tear - X-ray of the lower back remarkable for multilevel facet arthritis Pain Management - Affect: Pain impacts daily activities and quality of life - Analgesia: Current pain level is 8/10, managed with Tylenol, ibuprofen, and muscle relaxers - Adverse Effects: Concern about long-term use of ibuprofen - Activities of Daily Living: Pain interferes with standing, walking, and yoga practice - Aberrant Drug Related Behaviors: None reported [facility] Medical History (Updated 08/01/25 @ 15:48 by Norberto Warren MD) Depression Anxiety Osteoporosis Arthritis Sinusitis Family History (Updated 07/06/25 @ 09:20 by ARLENE Dhillon) Paternal Grandfather Alcohol abuse Son Alcohol abuse Brother High blood pressure Sister High cholesterol Diabetes Cardiovascular disease Father Diabetes Cardiovascular disease Paternal Grandmother Diabetes Maternal Grandfather Cardiovascular disease Mother Leukemia Maternal Grandmother Breast cancer Social History (Updated 07/06/25 @ 09:11 by ARLENE Dhillon) Housing: House Patient Tobacco Use Status: Never used Tobacco e-Cigarette/Vaping Use: Never Used Second Hand Smoke Exposure: No service: No Current occupational status: retired Current occupational exposures/hazards: No Cognitive needs: No Hearing needs: No Vision needs: Yes Physical Exam Vital Signs: Last Vital Signs Pulse 78 07/31/25 10:07 Resp 16 07/31/25 10:07 BP 126/59 L 07/31/25 10:07 Pulse Ox 98 07/31/25 10:07 Oxygen Delivery Method Room Air 07/31/25 10:07 BMI result Body Mass Index 31.3 Assessment & Plan Assessment & Plan (1) Osteoporosis: Code(s): M81.0 - Age-related osteoporosis without current pathological fracture Category: Medical (2) Hx of tear of meniscus of knee joint: Code(s): Z87.828 - Personal history of other (healed) physical injury and trauma Category: Medical (3) Bilateral knee pain: Code(s): M25.561 - Pain in right knee; M25.562 - Pain in left knee Category: Medical (4) Chronic pain: Comment: mechanical LBP Code(s): G89.29 - Other chronic pain Category: Medical Plan Plan Patient was informed and verbally consented to the use of an ambient scribe for clinic note documentation during this visit. 1. 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 Right Knee Pain Due To Meniscus Tear - Discussed trial of PRP injections for the meniscal tear - Patient to consider PRP injection and inform if she wishes to proceed 3. Osteopenia - Advised against frequent cortisone injections due to potential adverse effects on bone health 4. Urinary Incontinence - Noted as a separate issue, no specific plan discussed Discussion Notes I discussed with the patient the nature of her axial lower back pain, which is secondary to facet arthritis and multifidus dysfunction. We reviewed the potential benefits and costs of PRP injections for her right knee meniscus tear, noting that it is not covered by insurance and costs $750 per shot. I explained the options for managing her back pain, including peripheral nerve stimulation and radiofrequency ablation, and the need to check insurance coverage for these procedures. We also discussed the implications of her osteopenia on the use of cortisone injections. Patient Instructions - Consider the option of PRP injections for knee pain and inform the clinic if you wish to proceed. - Await contact from the clinic regarding insurance authorization for nerve stimulator for back pain. - Continue with home exercises and yoga as tolerated. - Avoid frequent use of ibuprofen due to potential adverse effects. Coding Level of Care Code New Pt Level 4 (94807) Diagnoses Osteoporosis M81.0 Hx of tear of meniscus of knee joint Z87.828 Bilateral knee pain M25.561; M25.562 Chronic pain G89.29
[2025-07-31 10:07] VITALS: BP 126/59; PULSE 78; RESP 16; O2SAT 98; BMI 31.3
== END 2025-07-31 10:44 | disposition home or self-care (01) ==
LOC: HO.PMC 10:04
PROVIDERS: PCP Nurse Practitioner Family; Visit Provider Internal Medicine
DX: M81.0 Age-related osteoporosis without current pathological fracture (principal); G89.29 Other chronic pain; M25.561 Pain in right knee; M25.562 Pain in left knee; Z87.828 Personal history of other (healed) physical injury and trauma
CPT/HCPCS: 99204

== ENCOUNTER → 2025-07-31 10:03 | Outpatient (BNVA) | payer MEDICARE, SELFPAY | PROVIDERS: PCP Nurse Practitioner Family; Visit Provider Internal Medicine | DX: M81.0 Age-related osteoporosis without current pathological fracture (principal); M25.561 Pain in right knee; M25.562 Pain in left knee; G89.29 Other chronic pain; Z87.828 Personal history of other (healed) physical injury and trauma | CPT/HCPCS: 99202 ==

== ENCOUNTER 2025-08-28 10:46 | Outpatient (REF) | payer MEDICARE, SELFPAY ==
--- NOTE | ~2025-08-28 | XR_ITS ---
EXAMINATION: XR WRIST, RIGHT CLINICAL INFORMATION: S69.91XA - Unspecified injury of right wrist, hand and finger(s), initia... COMPARISON: None available. TECHNIQUE: PA, lateral, oblique, and scaphoid views of the right wrist. FINDINGS: Scapholunate interval measures 2.45 mm which is upper limits of normal. No fracture is identified. No other abnormalities are seen. XR/XR wrist RT min 3V IMPRESSION: Scapholunate interval is upper limits of normal. Partial tear of scapholunate ligament is not ruled in or out. Electronically signed by: Isidro Scales MD 08/28/2025 12:41 PM EST RP
== END 2025-08-28 10:47 | disposition home or self-care (01) ==
LOC: HO.HMGCX 10:46
PROVIDERS: PCP Nurse Practitioner Family; Visit Provider Family Medicine
DX: S69.91XA Unspecified injury of right wrist, hand and finger(s), initial encounter (principal); W22.8XXA Striking against or struck by other objects, initial encounter; Y92.012 Bathroom of single-family (private) house as the place of occurrence of the external cause; Y93.89 Activity, other specified
CPT/HCPCS: 73110; 99212

== ENCOUNTER 2025-08-28 10:46 | Outpatient (AMB) | payer MEDICARE, SELFPAY ==
--- NOTE | 2025-08-28 10:47 | MHC.OFFWIV ---
Intake Vital Signs 08/28/25 10:48 Height 5 ft 2 in Weight 172 lb BMI 31.5 BP 119/57 L Blood Pressure Location Lt brachial Position Sitting Pulse 64 Pulse Source Pulse Oximeter Temp 97.9 F Temp Source Oral Pulse Oximetry (%) 96 Oxygen Delivery Method Room Air Intake Visit Reasons: EP- Wrist Injury Intake Note: EP complains of the right wrist blunt injury after hitting his wrist to a washroom sink a month ago. She says that some of her abilities like hanging the cloths or lifting weight with the right hand have been deteriorated. Patient Tobacco Use Status: Never used Tobacco Allergies No Known Allergies Allergy (Verified 08/28/25 10:59) Do you need a note to return to daycare/school/sports/work: No HPI HPI Comments History of Present Illness Details History of Present Illness The patient is a 70 year old female presenting with right wrist pain. - The patient reports experiencing wrist pain for approximately one month, which started after she hit her wrist on the edge of a sink. - Pain was immediately present after the injury and remained sore for a while. - The pain is localized to the radial aspect of her wrist. - Certain movements aggravate the pain, such as holding a weighted coat gutter hanger, pushing down on the wrist, and extending it backward. - She denies any radiation of pain to her fingers or up her arm, as well as numbness or tingling in her fingers. - Home treatments have included ice and using a TENS unit. - She has not taken any pain medication for this issue. Review of Systems - Musculoskeletal: Reports localized pain at the base of the thumb and wrist, exacerbated by movement. Denies pain radiation up the arm. - Neurological: Denies numbness or tingling in the fingers. Physical Exam General Appearance: Normal appearance, well developed. No acute distress Head: Normocephalic, atraumatic Pulmonary: No respiratory distress. Speaking in full sentences Musculoskeletal: No swelling, erythema, or open wounds noted along the right wrist. Tenderness to palpation overlying the lateral radius. Normal range of motion of the wrist. Ulnar deviation of the wrist reproduces pain. No scaphoid TTP. 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 Sensation intact. Mental Status: Alert and Oriented x 3 Psychiatric: Normal mood. Normal affect. [facility] Medical History (Updated 08/01/25 @ 15:48 by Norberto Warren MD) Depression Anxiety Osteoporosis Arthritis Sinusitis Family History (Updated 07/06/25 @ 09:20 by ARLENE Dhillon) Paternal Grandfather Alcohol abuse Son Alcohol abuse Brother High blood pressure Sister High cholesterol Diabetes Cardiovascular disease Father Diabetes Cardiovascular disease Paternal Grandmother Diabetes Maternal Grandfather Cardiovascular disease Mother Leukemia Maternal Grandmother Breast cancer Social History (Updated 07/06/25 @ 09:11 by ARLENE Dhillon) Housing: House Patient Tobacco Use Status: Never used Tobacco e-Cigarette/Vaping Use: Never Used Second Hand Smoke Exposure: No service: No Current occupational status: retired Current occupational exposures/hazards: No Cognitive needs: No Hearing needs: No Vision needs: Yes Physical Exam Vital Signs: Last Vital Signs Temp 97.9 F 08/28/25 10:48 Pulse 64 08/28/25 10:48 BP 119/57 L 08/28/25 10:48 Pulse Ox 96 08/28/25 10:48 Oxygen Delivery Method Room Air 08/28/25 10:48 BMI result Body Mass Index 31.5 Assessment & Plan Assessment & Plan (1) Right wrist injury: Code(s): S69.91XA - Unspecified injury of right wrist, hand and finger(s), initial encounter Qualifiers: Encounter type: initial encounter Qualified Code(s): S69.91XA - Unspecified injury of right wrist, hand and finger(s), initial encounter Plan - The patient is a 70-year-old female presenting with a one-month history of wrist pain following a direct impact injury. - The pain is localized near the radial aspect of the wrist and is exacerbated by ulnar deviation - Discussed differentials such as tendonitis based on symptoms and physical exam. Lower concern for fracture, however as symptoms have been ongoing for about a month after an injury, right wrist x-ray ordered to r/o fracture. - In the interim, The patient was fitted with a thumb spica wrist splint for immobilization. - Recommended ibuprofen as needed for pain relief. - Follow-up: The patient will be contacted with the X-ray results. Patient was informed and verbally consented to the use of an ambient scribe for clinic note documentation during the visit. Orders: Orders XR wrist RT min 3V Today S69.91XA - Unspecified injury of right wrist, hand and finger(s), initial encounter Patient Instructions: Please have xrays performed at your earliest convenience You may go to [address] [place] [address] to have imaging performed In the interim, recommend using wrist splint regularly You may use tylenol or ibuprofen as needed for pain relief We will contact you with the results Coding Level of Care Code Est Pt Level 3 (84215) Diagnoses Injury of right wrist, initial encounter S69.91XA Encounter type: initial encounter
[2025-08-28 10:48] VITALS: BP 119/57; PULSE 64; TEMP 36.6; O2SAT 96; BMI 31.5
== END 2025-08-28 11:26 | disposition home or self-care (01) ==
LOC: HO.HMCWIS 10:46
PROVIDERS: PCP Nurse Practitioner Family; Visit Provider Family Medicine
DX: S69.91XA Unspecified injury of right wrist, hand and finger(s), initial encounter (principal)

== ENCOUNTER → 2025-08-28 11:52 | Outpatient (BNV) | payer MEDICARE, SELFPAY | PROVIDERS: PCP Nurse Practitioner Family; Visit Provider Radiology Diagnostic Radiology | DX: S69.91XA Unspecified injury of right wrist, hand and finger(s), initial encounter (principal) | CPT/HCPCS: 73110 ==